=== PATIENT | male | born 1960 | race Caucasian/White ===

== ENCOUNTER 2020-08-03 10:50 | Emergency (ER) | payer OTHER, SELFPAY ==
[2020-08-03 10:59] VITALS: BP 153/112; PULSE 71; RESP 16; TEMP 36.3; O2SAT 99
--- NOTE | 2020-08-03 11:08 | ED.SKABFB ---
HPI - Skin/Abscess/Foreign Bdy General Chief complaint: Skin/Abscess/Foreign Body Stated complaint: rt foot pain Source: patient and old records reviewed Limitations: no limitations History of Present Illness HPI narrative: The patient, who has a prior history of gout current non-smoker/nondrinker, presents with toe pain. Patient states this iday weekend after eating and drinking more, the 2-3d onset of right great toe pain that is mild, worse with palpation, better at rest. No trauma, deformity, this is similar to prior episode of gout which occurred also in his ankle Related Data Allergies Allergy/AdvReac Type Severity Reaction Status Date / Time No Known Allergies Allergy Unverified 08/03/20 11:05 Review of Systems Review of Systems: Narrative: The patient has been informed that they may have pre-hypertension or Hypertension based on a BP reading in the department. I recommend that the patient call the primary care provider listed on their discharge instructions or a physician of their choice this week to arrange follow up for further evaluation of possible pre-hypertension or Hypertension General/Constitutional: No weight loss,fever Eyes: N0: Redness,discharge Ears/Nose/Throat: No: Epistaxis,ear discharge Respiratory: Denies: Hemoptysis Gastrointestinal: No Vomiting, Bleeding-rectal Skin: No Lumps, eruption Neurologic: No Focal Weakness,Sz Hematologic: Denies: Petechiae/Purpura Psychiatric: No: Suicida ideationl All Other Systems: Reviewed and Negative [facility] Family History Family History (Updated 07/24/14 @ 07:13 by DOCTOR UNKNOWN) Father Malignant neoplasm of prostate Social History Social History Smoking end date: 11/27/12 Alcohol intake: current Comments At time of signature, agree with nursing past medical, surgical, social and family history. There is no relevant family history pertinent to the presenting complaint Exam Narrative: Exam Narrative: General Appearance: Well appearing, Conjunctiva clear Mouth/Throat: Normal appearing, Normal lips Neck: Supple Respiratory: Airway patent, No respiratory distress MS-foot: Normal strength (mostly intact, limited flexion/extension by pain), Tenderness ( toe, with mild decreased ROM), Swelling MTP, Other- no collateral laxity, Skin: Warm, Dry, point tender and pink/inflamed MTPJ Neurological: A&O x3, Normal affect Course Vital Signs Vital signs: Vital Signs Temperature 97.4 F L 08/03/20 10:59 Pulse Rate 71 08/03/20 10:59 Respiratory Rate 16 08/03/20 10:59 Blood Pressure 153/112 H 08/03/20 10:59 Pulse Oximetry 99 08/03/20 10:59 Temperature 97.4 F L 08/03/20 10:59 Pulse Rate 71 08/03/20 10:59 Respiratory Rate 16 08/03/20 10:59 Blood Pressure 153/112 H 08/03/20 10:59 Pulse Oximetry 99 08/03/20 10:59 Discharge Plan Discharge Clinical Impression: Acute gout involving toe of right foot Qualifiers: Gout etiology: unspecified cause Qualified Code(s): M10.9 - Gout, unspecified Patient Disposition: Home, Self-Care Condition: Stable Instructions: Gout (ED) Additional Instructions: Try diet modifications [provided] Prescriptions: New indomethacin 50 mg capsule 50 mg PO TID Qty: 20 RF: 3 prednisone 20 mg tablet 60 mg PO DAILY Qty: 9 RF: 0 tramadol 50 mg tablet 50 mg PO TID PRN (Reason: pain) Qty: 10 RF: 0 Interventions: Discharge Disposition Last Done: 08/03/20 11:15 Follow-up/Referrals: Sima,Re Perla MD [Primary Care Provider] - Discharge Date/Time: 08/03/20 11:16
== END 2020-08-03 11:16 | disposition home or self-care (01) ==
PROVIDERS: Emergency Provider Emergency Medicine; PCP Family Medicine
DX: M10.9 Gout, unspecified (principal); Z85.46 Personal history of malignant neoplasm of prostate
CPT/HCPCS: 99213; G0463

== ENCOUNTER 2021-05-03 08:58 | Emergency (ER) | payer OTHER, SELFPAY ==
[2021-05-03 09:12] VITALS: BP 155/79; PULSE 80; RESP 16; TEMP 36.4; O2SAT 99
--- NOTE | 2021-05-03 09:20 | ED.EXTPRO ---
HPI - Extremity Problem General Chief complaint: Extremity Problem,Nontraumatic Stated complaint: Ankle Pain Source: patient and RN notes reviewed Limitations: no limitations History of Present Illness HPI Narrative: The patient, previously mostly healthy and active concrete spreader, presents with left ankle pain. Patient states he has a prior history of gout, and biked yesterday for about 20 miles and now has a 1 day history of atraumatic, left ankle pain. Symptoms are mild, worse with activity, somewhat located posteriorly along the peroneal tendon. No bleeding, deformity, prior/other injury, effusion/swelling. Discussed plan to provide Indocin for mild pain, prednisone, and Tylenol 3 at bedtime for severe pain Related Data Home Medications Medication Instructions Recorded Confirmed omeprazole 20 mg capsule,delayed 20 mg PO DAILY 08/19/20 01/04/21 release sildenafil (pulm.hypertension) 20 20 mg PO DAILY tablet 08/19/20 01/04/21 mg tablet Allergies Allergy/AdvReac Type Severity Reaction Status Date / Time No Known Allergies Allergy Unverified 12/02/20 15:40 Review of Systems Review of Systems: Narrative: General/Constitutional: No weight loss,fever Eyes: N0: Redness,discharge Ears/Nose/Throat: No: Epistaxis,ear discharge Respiratory: Denies: Hemoptysis Gastrointestinal: No Vomiting, Bleeding-rectal Skin: No Lumps, eruption Neurologic: No Focal Weakness,Sz Hematologic: Denies: Petechiae/Purpura Psychiatric: No: Suicida ideationl All Other Systems: Reviewed and Negative PMFSH Past Medical History Medical History (Updated 05/03/21 @ 09:24 by Juarez Alcantar MD) GERD (gastroesophageal reflux disease) Hypertension Prostate cancer Surgical History Surgical History (Updated 10/08/20 @ 10:06 by Bernard Wong MD) History of radical prostatectomy Family History Family History Father Malignant neoplasm of prostate Social History Social History (Updated 01/04/21 @ 16:59 by Ivet Blake MA) Smoking packs per day: 0.75 Smoking cigarettes per day: 15.0 Years smoked: 20 Smoking pack-years: 15.00 Smoking status: Former smoker Tobacco type: cigarettes Second hand tobacco smoke exposure: No Smoking end date: 11/27/12 Alcohol intake: current Substance use: never Substance use type: does not use Gender identity (if verbalized by the patient): Male Spiritual care concerns: No Comments At time of signature, agree with nursing past medical, surgical, social and family history. There is no relevant family history pertinent to the presenting complaint Exam Narrative: Exam Narrative: General Appearance: Well appearing, , Conjunctiva clear Ears: External ear normal, Auditory canal normal Nose: Normal nose, Nares clear Mouth/Throat: Normal appearing, Normal lips Neck: Supple Respiratory: Airway patent, No respiratory distress MS-ankle: Normal strength (mostly intact, almost unlimited flexion/extension by pain), Tenderness (posterior laterally, with mild decreased ROM), No swelling, Other (no anterior drawer, no collateral laxity, no Achilles tenderness, no fifth MT tenderness) Skin: Warm, Dry, Normal color Neurological: A&O x3, , Normal affect Course Vital Signs Vital signs: Vital Signs Temperature 97.6 F 05/03/21 09:12 Pulse Rate 80 05/03/21 09:12 Respiratory Rate 16 05/03/21 09:12 Blood Pressure 155/79 H 05/03/21 09:12 Pulse Oximetry 99 05/03/21 09:12 Temperature 97.6 F 05/03/21 09:12 Pulse Rate 80 05/03/21 09:12 Respiratory Rate 16 05/03/21 09:12 Blood Pressure 155/79 H 05/03/21 09:12 Pulse Oximetry 99 05/03/21 09:12 Discharge Plan Discharge Clinical Impression: Left ankle tendinitis Patient Disposition: Home, Self-Care Condition: Stable Instructions: Tendinitis (ED) Prescriptions: No Action omeprazole 20 mg capsule,delayed release(D
== END 2021-05-03 09:30 | disposition home or self-care (01) ==
PROVIDERS: Emergency Provider Emergency Medicine; PCP Family Medicine
DX: Z87.891 Personal history of nicotine dependence (principal); M77.52 Other enthesopathy of left foot and ankle; K21.9 Gastro-esophageal reflux disease without esophagitis; I10 Essential (primary) hypertension; Z85.46 Personal history of malignant neoplasm of prostate
CPT/HCPCS: 99212; G0463

== ENCOUNTER 2024-03-07 11:17 | Outpatient (CLI) | payer MEDICARE, SELFPAY ==
--- NOTE | ~2024-03-07 | CT_ITS ---
CT Scan of the Chest without Contrast: Clinical Indication: Lung cancer screening, nicotine dependence Technique: Contiguous sections were acquired throughout the chest without intravenous contrast. Dose reduction technique was used on this scan by utilizing automated exposure control and iterative recon struction technique. The dose-length product (DLP) was 140.85 mGy-cm. Findings: There is no evidence of any significant mediastinal, hilar or axillary lymphadenopathy. The mediastin al soft tissues appear normal. There is no evidence of pleural or pericardial effusion. 7 mm noncalcified left lower lobe pulmonary nodule present (axial image 65). Images through the upper abdomen reveal no abnormalities. Impression: Lung RADS 3: Probably benign. Six-month follow-up screening CT advised. Reviewed, dictated and finalized at location . Impression: Lung RADS 3: Probably benign. Six-month follow-up screening CT advised.
== END 2024-03-07 11:18 ==
LOC: GOSHIMG 11:18
PROVIDERS: PCP Family Medicine; Visit Provider Physician Assistant
DX: Z12.2 Encounter for screening for malignant neoplasm of respiratory organs (principal); Z87.891 Personal history of nicotine dependence; R91.8 Other nonspecific abnormal finding of lung field
CPT/HCPCS: 71271

== ENCOUNTER 2024-03-20 05:53 | Day surgery (SDC) | payer MEDICARE, SELFPAY ==
[2024-02-23 12:44] VITALS: BMI 31.6
--- NOTE | 2024-03-19 09:29 | WPDANESEPPF ---
Anes - Initial Pre Proc Eval Procedure: Operation Date: 03/20/24 07:30 Proposed Procedures p Screening Colonoscopy - Cassius Ramírez MD Date/Time: 03/19/24 09:29 Surgeon: Cassius Ramírez MD Pre Op Diagnosis: Screening for neoplasm of colon and rectum Patient Data Age: 63 Gender: M Height: 1.7 m Weight: 86.2 kg Allergies Allergy/AdvReac Type Severity Reaction Status Date / Time No Known Allergies Allergy Verified 03/20/24 06:04 Home Medications Medication Instructions Recorded Confirmed Type omeprazole 20 mg capsule,delayed 20 mg PO DAILY 08/19/20 03/20/24 History release lisinopril 20 mg tablet See Rx Instructions .Route 02/06/24 03/20/24 Rx .COMPLEX #90 tabs Vitamin C 1 tab-cap PO DIRECTED 03/06/24 03/20/24 History cyanocobalamin (vitamin B-12) 1 tablet PO DIRECTED 03/06/24 03/20/24 History Patient hx anesthesia problems: none Family hx anesthesia problems: none Results Review: All pre-operative results and documents have been reviewed as part of the pre-operative evaluation. [facility] Past Medical History Medical History GERD (gastroesophageal reflux disease) History of prostate cancer Hypertension Prostate cancer Surgical History Surgical History History of radical prostatectomy Family History Family History Father Malignant neoplasm of prostate Social History Social History Social History: Smoking packs per day: 0.75 Smoking cigarettes per day: 15.0 Years smoked: 20 Smoking pack-years: 15.00 Smoking status: Former smoker Tobacco type: cigarettes Second hand tobacco smoke exposure: No Smoking end date: 11/27/12 Alcohol intake: former Substance use: never Substance use type: does not use Living arrangements: with family Occupation/Education: occupation Gender identity (if verbalized by the patient): Male Sexual Orientation (if Verbalized by the Patient): Straight or Heterosexual Spiritual care concerns: No Anes - Eval Final PreProcedure Day of Procedure 03/19/24 09:29 Patient weight: overweight Heart: regular rate and rhythm Lungs: clear to auscultation Airway: Mallampati scale class II Neurological: alert and oriented Last oral intake: >/= 8 hours ASA classification: III Emergent: no Anesthetic plan: proceed Anesthesia type and monitoring: general GIVS and standard monitoring Results Review: All pre-operative results and documents have been reviewed as part of the pre-operative evaluation. Informed Consent: The patient's anesthetic plan and its attendant risks and benefits were discussed with the patient/family/POA. Questions were solicited and answers provided to the satisfaction of the patient/family/POA.
[2024-03-20 06:35] VITALS: BP 152/108; PULSE 106; RESP 16; TEMP 36.6; O2SAT 97; BMI 30.9
[2024-03-20] MEDS: LACTATED RINGERS 1,000 ML 150 ML IV CONT (06:44)
--- NOTE | 2024-03-20 07:13 | PM.HPGS ---
History of Present Illness History of Present Illness Consent: Risks, benefits, and alternatives have been discussed and questions answered. Patient agrees to proceed with procedure. Chief complaint: Screening for neoplasm of colon and rectum Narrative: Ki Flores is a 63 year old male presents for screening colonoscopy. Patient ate appetite and bowel movements are normal. He is abdominal pain. He has had no bleeding. Family history is noncontributory. Previous colonoscopy 10 years ago was unremarkable. Review of Systems Review of Systems: All systems reviewed & are unremarkable except as noted in HPI and below PMFSH Past Medical History Medical History GERD (gastroesophageal reflux disease) History of prostate cancer Hypertension Prostate cancer Surgical History Surgical History History of radical prostatectomy Family History Family History Father Malignant neoplasm of prostate Social History Social History Social History: Smoking packs per day: 0.75 Smoking cigarettes per day: 15.0 Years smoked: 20 Smoking pack-years: 15.00 Smoking status: Former smoker Tobacco type: cigarettes Second hand tobacco smoke exposure: No Smoking end date: 11/27/12 Alcohol intake: former Substance use: never Substance use type: does not use Living arrangements: with family Occupation/Education: occupation Gender identity (if verbalized by the patient): Male Sexual Orientation (if Verbalized by the Patient): Straight or Heterosexual Spiritual care concerns: No Meds Home Medications and Allergies Home Medications Medication Instructions Recorded Confirmed Type omeprazole 20 mg capsule,delayed 20 mg PO DAILY 08/19/20 03/20/24 History release lisinopril 20 mg tablet See Rx Instructions .Route 02/06/24 03/20/24 Rx .COMPLEX #90 tabs Vitamin C 1 tab-cap PO DIRECTED 03/06/24 03/20/24 History cyanocobalamin (vitamin B-12) 1 tablet PO DIRECTED 03/06/24 03/20/24 History Allergies Allergy/AdvReac Type Severity Reaction Status Date / Time No Known Allergies Allergy Verified 03/20/24 06:04 Vital Signs Vital Signs - 24 hr 03/20/24 06:35 Temperature 98 F Pulse Rate 106 H Respiratory Rate 16 Blood Pressure 152/108 H Pulse Oximetry 97 Oxygen Delivery Room Air Exam Narrative: Physical exam reveals patient to be alert. Vital signs stable. HEENT is unremarkable. Patient is anicteric. Lungs are clear to auscultation and percussion. Heart Is without murmur or extra sounds. Abdomen bowel sounds are present soft nontender . Digital external rectal exam is normal. Assessment and Plan Assessment and plan (1) Encounter for screening colonoscopy: Code(s): Z12.11 - Encounter for screening for malignant neoplasm of colon Status: Acute Assessment and Plan: Patient presents today for screening colonoscopy.
[2024-03-20 07:49] VITALS: BP 137/99; PULSE 86; RESP 16; O2SAT 98
[2024-03-20 07:59] VITALS: BP 142/96; PULSE 74; RESP 14; O2SAT 97
[2024-03-20 08:09] VITALS: BP 145/105; PULSE 71; RESP 14; O2SAT 96
--- NOTE | 2024-03-20 13:32 | WPDANESPN ---
Anes - Prog Note Post-Op Date/Time: 03/20/24 13:32 Cardiovascular status: normal Respiratory status: normal Airway patency: baseline Mental status: baseline Post-Op hydration status: normal Vital Signs: Last Vital Signs Temp 36.6 C 03/20/24 06:35 Pulse 71 03/20/24 08:09 Resp 14 03/20/24 08:09 BP 145/105 H 03/20/24 08:09 Pulse Ox 96 03/20/24 08:09 O2 Del Method Room Air 03/20/24 08:09 Pain Score (VAS): 0 I/O: Intake & Output 03/19/24 03/20/24 03/20/24 23:59 07:59 15:59 Intake Total 400 300 Balance 400 300 Post-procedural complaints: none Patient Feedback: Patient satisfied with anesthetic care. Other Findings: Patient vital signs back to baseline. Patient denies nausea and vomiting. Patient's pain under control. Patient OK for discharge.
== END 2024-03-20 08:28 | disposition home or self-care (01) ==
PROVIDERS: PCP Family Medicine; Visit Provider Internal Medicine Gastroenterology
PROC: 0DJD8ZZ Inspection of Lower Intestinal Tract, Via Natural or Artificial Opening Endoscopic (ICD-10-PCS; CPT 45378; principal; 2024-03-20 07:30)
DX: Z12.11 Encounter for screening for malignant neoplasm of colon (principal); K57.30 Diverticulosis of large intestine without perforation or abscess without bleeding; K64.8 Other hemorrhoids
CPT/HCPCS: 45378

== ENCOUNTER 2024-05-16 12:13 | Outpatient (CLI) | payer MEDICARE, SELFPAY ==
--- NOTE | ~2024-05-16 | XR_ITS ---
XR shoulder LT min 2V Ordering provider: Bernard Wong MD History: . bilat shoulder pain . Comparison: None. FINDINGS: BONES: No acute fracture or dislocation. JOINT SPACES: The acromioclavicular joint is normal. The glenohumeral joint is normal. SOFT TISSUES: Normal. IMPRESSION: No acute osseous abnormality left shoulder. Reviewed, dictated and finalized at location A.
--- NOTE | ~2024-05-16 | XR_ITS ---
XR shoulder RT min 2V Ordering provider: Bernard Wong MD History: . M25.511 - Pain in right shoulder . Comparison: None. FINDINGS: BONES: No acute fracture or dislocation. JOINT SPACES: The acromioclavicular joint is normal. The glenohumeral joint is normal. SOFT TISSUES: Normal. IMPRESSION: No acute osseous abnormality right shoulder. Reviewed, dictated and finalized at location A.
== END 2024-05-16 12:14 ==
LOC: MICIMG 12:14
PROVIDERS: PCP Family Medicine; Visit Provider Family Medicine
DX: M25.511 Pain in right shoulder (principal); M25.512 Pain in left shoulder
CPT/HCPCS: 73030

== ENCOUNTER 2024-09-09 08:21 | Outpatient (CLI) | payer MEDICARE, SELFPAY ==
--- NOTE | ~2024-09-09 | CT_ITS ---
CT Scan of the Chest without Contrast: Clinical Indication: Pulmonary nodule Technique: Contiguous sections were acquired throughout the chest without intravenous contrast. Dose reduction technique was used on this scan by utilizing automated exposure control and iterative recon struction technique. The dose-length product (DLP) was 170.02 mGy-cm. COMPARISON: 03/07/2024 Findings: There is no evidence of any significant mediastinal, hilar or axillary lymphadenopathy. The mediastin al soft tissues appear normal. There is no evidence of pleural or pericardial effusion. Stable 8 mm left lower lobe pulmonary nodule (axial image 74). Images through the upper abdomen reveal diffuse hepatic steatosis. Impression: Stable 8 mm left lower lobe pulmonary nodule. Reviewed, dictated and finalized at location . Impression: Stable 8 mm left lower lobe pulmonary nodule.
== END 2024-09-09 08:22 | disposition home or self-care (01) ==
PROVIDERS: PCP Family Medicine; Visit Provider Physician Assistant Medical
DX: R91.1 Solitary pulmonary nodule (principal)
CPT/HCPCS: 71250

== ENCOUNTER 2024-09-17 08:30 | Outpatient (CLI) | payer MEDICARE, SELFPAY ==
--- NOTE | ~2024-09-17 | MR_ITS ---
EXAMINATION: MR shoulder RT wo con DATE: 09/17/2024 09:12 INDICATION: Pain in right shoulder. TECHNIQUE: Magnetic resonance imaging (MRI) of the right shoulder was performed without intravenous c ontrast. Sequences included axial PD-weighted FS FSE, coronal oblique PD-weighted FS FSE and T2-weigh jonathan FS FSE, and sagittal oblique T2-weighted FS FSE and T1-weighted FSE. COMPARISON: Right shoulder radiograph 05/16/2024 FINDINGS: Coracoacromial arch: The acromion undersurface is curved in morphology (type II). Subacromial spurring is noted. There is severe acromioclavicular joint osteoarthritis including inferiorly directed osteophytes. There is mil d subacromial/subdeltoid bursitis. Rotator cuff: There is a full-thickness tear of anterior supraspinatus tendon measuring 1.5 cm anterior to posterio r by 3.0 cm proximal to distal. There is a small interstitial tear of the infraspinatus myotendinous junction. Teres minor tendon is normal. There is an articular-sided partial thickness tear of distal subscapularis tendon. There is no asymmetric fatty atrophy of the rotator cuff muscle bellies. Biceps tendon and glenoid labrum: There is a complete tear of proximal biceps tendon. A portion of the biceps tendon is medially displa julio into the subscapularis tendon tear. There is a degenerative tear of the superior glenoid labrum. Fluid: There is a small glenohumeral joint effusion. Bones/cartilage: There is shallow partial-thickness cartilage loss of humeral head and glenoid. Osteophytes are noted. IMPRESSION: 1. Full-thickness rotator cuff tear. 2. Mild glenohumeral joint chondrosis. 3. Severe acromioclavicular joint osteoarthritis. 4. Small glenohumeral joint effusion and mild subacromial/subdeltoid bursitis. 5. Complete tear of proximal biceps tendon. Reviewed, dictated and finalized at location A.
== END 2024-09-17 08:31 | disposition home or self-care (01) ==
LOC: ANHIMG 08:34
PROVIDERS: PCP Family Medicine; Visit Provider Family Medicine
DX: M75.101 Unspecified rotator cuff tear or rupture of right shoulder, not specified as traumatic (principal); M19.011 Primary osteoarthritis, right shoulder; S46.211D Strain of muscle, fascia and tendon of other parts of biceps, right arm, subsequent encounter; X58.XXXD Exposure to other specified factors, subsequent encounter
CPT/HCPCS: 73221

== ENCOUNTER 2025-02-17 16:40 | Outpatient (CLI) | payer MEDICARE, SELFPAY ==
--- OUTSIDE RECORDS SUMMARY | 2025-02-17 18:40 | XMS_ITS | Clinical Summary ---
Author Organization [facility] Address [address] [place] [place] [address] Phone Care Team Providers Care Planning Feeder Name Role Phone Bernard Wong MD Primary Care Provider [phone] Allergies No known active allergies Medications HYDROcodone-elicia taminophen (NORCO) 5-325 mg tabletIndicatio ns:Elevated PSA Take 1 Tablet by mouth every 4 hours as needed for Pain. Max Daily Amount: 6 Tablets 30 Tablet 0 Active sildenafiL, pulm.hypertensi on, (REVATIO) 20 mg Tablet Take 1 Tablet (20 mg) by mouth 1 time daily as needed for Other (See Comment) (ED). Take 2-5 tablets daily when necessary for ED. 50 Tablet 0 Active Active Problems Problem Noted Date Diagnosed Date History of prostate cancer 06/19/2023 Erectile dysfunction 07/13/2020 TIARA (stress urinary incontinence), male 07/13/20 20 Prostate cancer 01/28/2020 Elevated PSA 12/10/2019 Encounters Date Type Department Care Team Description 02/12/2025 External Device Data STL ABSTRACTION Provider, Abstract 02/01/2025 External Device Data STL ABSTRACTION Provider, Abstract 01/31/2025 External Device Data STL ABSTRACTION Provider, Abstract 01/28/2025 External Device Data STL ABSTRACTION Provider, Abstract 01/15/2025 External Device Data STL ABSTRACTION Provider, Abstract 01/15/2025 External Device Data STL ABSTRACTION Provider, Abstract 12/24/2024 External Device Data STL ABSTRACTION Provider, Abstract 12/18/2024 External Device Data STL ABSTRACTION Provider, Abstract 12/18/2024 External Device Data STL ABSTRACTION Provider, Abstract 12/10/2024 External Device Data STL ABSTRACTION Provider, Abstract from Last 3 Months Social History Tobacco Use Types Packs/Day Years Used Date Smoking Tobacco: Former Cigarettes Q uit: 2012 Smokeless Tobacco: Never Tobacco Cessation:Counseling Given: Not Answered Alcohol Use Standard Drinks/Week Comments Yes 1 (1 standard drink = 0.6 oz pur e alcohol) soc Sex and Gender Information Value Date Recorded Sex Assigned at Not on file 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 Gender Identity Not on file Sexual Orientation Not on file Last Filed Vital Signs Vital Sign Reading Time Taken Comments Blood Pressure 130/74 06/19/2023 2:54 PM CDT Pulse 87 04/16/2020 5:17 AM CDT Temperature 36.7 C (98 F) 04/21/2020 2:16 PM CDT Respiratory Rate 18 06/13/2022 2:07 PM CDT Oxygen Saturation 97% 04/16/2020 5:43 AM CDT Inhaled Oxygen Concentration - - Weight 83.9 kg (185 lb) 06/24/2024 2:50 PM CDT Height 170.2 cm (5' 7 ) 06/24/2024 2:50 PM CDT Body Mass Index 28.98 06/24/2024 2:50 PM CDT Plan of Treatment Upcoming Encounters Date Type Department Care Team (Late st Contact Info) Description 06/24/2025 10:00 AM CDT Office Visit [facility] Urology at the [facility] Medicine [address] [place] [address] Alex Muller MD [address] [facility] [address] [place] [address] Health Maintenance Due Date Last Done Comments Pre-Diabetes and Diabetes Screening 1958 DTAP/TDAP/TD VACCINES (1 - Tdap) 1977 COLORECTAL SCREENING 2003 Colorectal Cancer Screening 2003 FIT-DNA Q 3 years 2003 FIT/FOBT Q 1 year 2003 Flex Sig/CT Colonography Q 5 years 2003 PNEUMOCOCCAL VACCINE 50+ YEARS (1 of 1 - PCV) 10/04/20 08 ZOSTER VACCINE (1 of 2) 2008 Abdominal Aortic Aneurysm (AAA) Screening 2023 INFLUENZA VACCINE (#1) 2024 RSV VACCINE (60+ or ) (1 - 1-dose 75+ series) 2033 Medical Devices Implanted Type Area Chief Compliance Officer Device Identifier Shelf Expiration Date Model / Serial / Lot Polyner Ligation Clips Implanted:Qty : 1 on 04/14/2020 by Alex Muller MD at [facility] Clip N/A: Pelvis 04/27/2022 [id number] / / [id number] Description:REF: [id number] Clip Hemolok Lrg [id number] - Csc - [id number] Implanted:Qty : 5 on 04/14/2020 by Alex Muller MD at [facility] Clip N/A: Pelvis TELEFLEX- WECK CLOSURE SYS 07/08/2024 [id number] / / [id number] Hemostatic Surgicel 4x8in 1953 - [id number] Implanted:Qty : 1 on 04/14/2020 by Alex Muller MD at [facility] Hemostatic Pelvis [employer] [id number] 06/26/2024 1952 / / [id number] Hemostatic Surgicel 4x8in 1953 - [id number] Implanted:Qty : 1 on 04/14/2020 by Alex Muller MD at [facility] Hemostatic N/A: Pelvis [employer] [id number] 07/27/20242 / / [id number] Hemostatic Surgiflo 8ml W/Thrombin 2994 - [id number] Implanted:Qty : 1 on 04/14/2020 by Alex Muller MD at [facility] Hemostatic N/A: Pelvis [employer] [id number] 01/24/2021 2994 / / [id number] Hemostatic Surgiflo 8ml W/Thrombin 2994 - [id number] Implanted:Qty : 1 on 04/14/2020 by Alex Muller MD at [facility] Hemostatic N/A: Pelvis [employer] [id number] 11/26/2020 2994 / / [id number] Hemostatic Surgicel 4x8in 1953 - [id number] Implanted:Qty : 1 on 04/14/2020 by Alex Muller MD at [facility] Hemostatic Pelvis [employer] [id number] 06/26/20242 / / [id number] Hemostatic Surgiflo 8ml W/Thrombin 2993 - [id number] Implanted:Qty : 1 on 04/14/2020 by Alex Muller MD at [facility] Hemostatic Pelvis [employer] [id number] 01/24/2021 2994 / / [id number] Insurance [facility] [id number] [facility] Host [employer] [facility] MCR Advance Directives For more information, please contact: [phone] * Full Code (Latest Code Status on File) Date Activated Date Inactivated Comments 04/14/2020 7:26 PM 04/16/2020 1:16 PM * Full Code Date Activated Date Inactivated Comments 04/14/2020 10:56 AM 04/14/2020 7:26 PM * Full Code Date Activated Date Inactivated Comments 01/06/2020 11:22 AM 01/06/2020 2:32 PM * Full Code Date Activated Date Inactivated Comments 01/06/2020 9:41 AM 01/06/2020 11:21 AM Care Teams Planning Feeder Relationship Specialty Start Date End Date Bernard Wong MD [address] [facility] [address] [place] [address] PCP - General Family Practice 10/15/20
== END 2025-02-17 16:41 | disposition home or self-care (01) ==
LOC: ANHLAB 16:43
PROVIDERS: PCP Family Medicine; Visit Provider Orthopaedic Surgery
DX: Z01.818 Encounter for other preprocedural examination (principal); M75.101 Unspecified rotator cuff tear or rupture of right shoulder, not specified as traumatic
CPT/HCPCS: 87081

== ENCOUNTER 2025-02-18 13:24 | Outpatient (CLI) | payer MEDICARE, SELFPAY ==
--- NOTE | 2025-02-18 13:42 | ECG_ITS ---
Test Date: 2025-02-18 13:54:08 Measurements Intervals [place] Rate: 62 P: 51 [place]: 171 QRS: 48 QRSD: 92 T: 11 QT: 387 QTc: 393 Interpretive Statements SINUS RHYTHM WITH MARKED SINUS ARRHYTHMIA No previous ECG available for comparison Electronically Signed On 02-18-2025 16:46:53 CDT by Sammie Deng M.D.
--- OUTSIDE RECORDS SUMMARY | 2025-02-18 15:36 | XMS_ITS | Clinical Summary ---
Author Organization [facility] Address [address] 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 Gender Identity Not on file Sexual Orientation [...] Description 06/24/2025 10:00 AM CDT Office Visit [facility] Urology at the [facility] Medicine [address] [place] [address] Alex Muller MD [address] [facility] [address] [place] [address] Health Maintenance Due Date Last Done Comments [...] series) 2033 Medical Devices Implanted Type Area Adventure Therapist Device Identifier Shelf Expiration Date Model / Serial / Lot Polyner Ligation Clips Implanted:Qty : 1 on 04/14/2020 by Alex Muller MD at [facility] Clip N/A: Pelvis 04/27/2022 [id number] / / [id number] Description:REF: [id number] Clip Hemolok Lrg 298459 - Csc - [id number] Implanted:Qty : 5 on 04/14/2020 by Alex Muller MD at [facility] Clip N/A: Pelvis TELEFLEX- WECK CLOSURE SYS 07/08/2024 [id number] / / [id number] Hemostatic Surgicel 4x8in 1953 - [id number] Implanted:Qty : 1 on 04/14/2020 by Alex Muller MD at [facility] Hemostatic Pelvis [employer] [id number] 06/26/2024 1952 / / [id number] Hemostatic Surgicel 4x8in 1953 - [id number] Implanted:Qty : 1 on 04/14/2020 by Alex Muller MD at [facility] Hemostatic N/A: Pelvis [employer] [id number] 07/27/20242 / / [id number] Hemostatic Surgiflo 8ml W/Thrombin 2994 - [id number] Implanted:Qty : 1 on 04/14/2020 by Alex Muller MD at [facility] Hemostatic N/A: Pelvis [employer] [id number] 01/24/2021 2994 / / [id number] Hemostatic Surgiflo 8ml W/Thrombin 2994 - [id number] Implanted:Qty : 1 on 04/14/2020 by Alex Muller MD at [facility] Hemostatic N/A: Pelvis [employer] [id number] 11/26/2020 2994 / / [id number] Hemostatic Surgicel 4x8in 1953 - [id number] Implanted:Qty : 1 on 04/14/2020 by Alex Muller MD at [facility] Hemostatic Pelvis J[employer] [id number] 06/26/20242 / / [id number] Hemostatic Surgiflo 8ml W/Thrombin 2993 - [id number] Implanted:Qty : 1 on 04/14/2020 by Alex Muller MD at [facility] Hemostatic Pelvis [employer] [id number] 01/24/2021 2994 / / [id number] Insurance [facility] [id number] [facility] [employer] [facility] MCR Advance Directives For more information, please contact: [phone] * Full Code (Latest Code Status on File) Date Activated Date Inactivated Comments 04/14/2020 7:26 PM 04/16/2020 1:16 PM * Full Code Date Activated Date Inactivated Comments 04/14/2020 10:56 AM 04/14/2020 7:26 PM * Full Code Date Activated Date Inactivated Comments 01/06/2020 11:22 AM 01/06/2020 2:32 PM * Full Code Date Activated Date Inactivated Comments 01/06/2020 9:41 AM 01/06/2020 11:21 AM Care Teams Vtc Technician Relationship Specialty Start Date End Date Bernard Wong MD [address] [facility] [address] [place] [address] PCP - General Family Practice 10/15/20
== END 2025-02-18 13:25 | disposition home or self-care (01) ==
PROVIDERS: PCP Family Medicine; Visit Provider Anesthesiology
DX: E78.5 Hyperlipidemia, unspecified (principal); I10 Essential (primary) hypertension
CPT/HCPCS: 93005

== ENCOUNTER 2025-02-27 00:40 | Day surgery (SDC) | payer MEDICARE, SELFPAY ==
[2025-02-13 14:18] VITALS: BMI 29.7
--- NOTE | 2025-02-13 14:40 | PC.NURSE ---
Report to the Outpatient Waiting Room, entrance under the green pavilion located off [facility], at time ___9:30AM____ on date ___02/27/25____. Planned Procedure Time: ___11:30AM .? Time changes happen often and if your time is changed the preop area will call you the afternoon before. - You and your visitor will be asked to self-screen and do not enter if you have any COVID symptoms. Please call surgeon if you need to reschedule. - A mask is optional within the hospital at this time. Patients may have clear liquids (water, carbonated beverages, clear teas, apple juice) until 3 hours prior to surgery (8:30AM) with a maximum of 20 ounces. - No food from midnight until time of surgery and no smoking, or chewing tobacco (or any form of nicotine). No chewing gum, candy or mints. Take only the following medications with a SIP of water on the morning of surgery: ___TRAMADOL NEEDED FOR PAIN DO NOT STOP ANY OF YOUR OTHER PRESCRIPTION MEDICATIONS PRIOR TO SURGERY EXCEPT THE FOLLOWING Hold all vitamins and supplements for 3 days per anesthesiologist. Medications to discontinue per physician ___HOLD NSAIDS(IBUPROFEN) AND VITAMINS/SUPPLEMENTS 7 DAYS PRE-OP PER DR CORDOBA. Date to take last dose 02/19/25 Please no make-up, nail urdu, hairspray, perfume, deodorant, or body powder the day of surgery.? No jewelry (including any body piercings) or valuables the day of surgery, leave them at home.? Please take a shower or bath the night before, or the morning of, surgery with an antibacterial soap.? Wear comfortable, loose fitting clothing.? - Jewelry must be removed prior to entering the operating room.? Rings and piercings that are not removed may be cut off. - The hospital will not accept responsibility for valuables.? - Please leave all valuables, including medications, at home the day of surgery. If you are going home after surgery, a licensed pile driver operator must drive you home.? - NO public transportation without another adult if you receive anesthesia. - We recommend that an adult stay with you for 24 hours following discharge. - We also recommend that you do not drive, make important decision, drink alcoholic beverages, or take any drugs that were not prescribed by your health care provider for at least 24 hours after your discharge time. Follow any additional instructions given to you from your surgeon. Telephone instructions given to ____PATIENT and asked if any additional questions and then verbalized understanding. Patient advised to call surgeon office or pre surgery nurse liaison [phone] if any additional questions.
--- NOTE | 2025-02-26 12:26 | PM.IMHP ---
H&P: HPI History of Present Illness Date/Time: 02/26/25 12:26 Chief Complaint: Rotator cuff tear right shoulder Narrative: 64-year-old male who presents today arthroscopy of his right shoulder mini open rotator cuff repair. Patient has been having pain in symptoms in his right shoulder for several years. Last year it has gotten worse. He does not recall any injury or accident that caused the onset of his symptoms. They have been slowly progressively worsening over the course of last year. This point he is having symptoms of pain and weakness sensation on a daily basis. He had an MRI scan done in August of 2024 which showed a full-thickness tear of the supraspinatus tendon with medial retraction and partial thickness tearing of the upper border of the infraspinatus tendon. 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 Patient is very active 64-year-old and the pain he is having in the shoulders is limiting his activities. Patient would like to proceed with surgery at this point rather than continue non operative treatments. Review of Systems Review of Systems: All systems reviewed & are unremarkable except as noted in HPI and below PMFSH Past Medical History Medical History History of prostate cancer Hypertension GERD (gastroesophageal reflux disease) Prostate cancer Surgical History Surgical History History of radical prostatectomy Family History Family History Father Malignant neoplasm of prostate Social History Social History (Updated 02/18/25 @ 15:28 by Jihan Mccann MA) Social History: Smoking packs per day: 0 Smoking cigarettes per day: 0.0 Years smoked: 25 Smoking pack-years: 0.00 Smoking status: Former smoker Tobacco type: cigarettes Second hand tobacco smoke exposure: No Smoking end date: 05/27/10 Alcohol intake: former Substance use: never Substance use type: does not use Do You Feel Safe in your Home?: Yes Lack of Transportation: No Lack of Food: Never True Current Housing: I Have Housing Concerned About Future Housing: No Difficulty Paying Gas/Electric Bills: No Difficulty Paying for Meds: No Currently Unemployed: No Education: Bachelor's Degree Difficulty w/ Childcare or Family Care: No Living arrangements: with family Additional living arrangements comments: Occupation/Education: occupation Gender identity (if verbalized by the patient): Male Sexual Orientation (if Verbalized by the Patient): Straight or Heterosexual Spiritual care concerns: No Meds Home Medications and Allergies Home Medications ?Medication ?Instructions ?Recorded ?Confirmed ?Type omeprazole 20 mg capsule,delayed 20 mg PO DAILY PRN GERD 08/19/20 02/18/25 History release cyanocobalamin (vitamin B-12) 1 tablet PO DAILY 03/06/24 02/18/25 History lisinopril 20 mg tablet See Rx Instructions .Route 11/01/24 02/18/25 Rx .COMPLEX #90 tabs tramadol 50 mg tablet 50 mg PO Q6H PRN pain #30 tabs 11/28/24 02/18/25 Rx ascorbic acid (vitamin C) 1,000 mg 1 g PO DAILY 02/13/25 02/18/25 History capsule ibuprofen 200 mg capsule 600 mg PO Q6H PRN pain 02/13/25 02/18/25 History omega 4-vad-ydk-fish oil 1,000 mg 1 cap PO DAILY 02/13/25 02/18/25 History (120 mg-180 mg) capsule (Fish Oil) Allergies Allergy/AdvReac Type Severity Reaction Status Date / Time No Known Allergies Allergy Verified 02/18/25 15:14 Exam Narrative: 64-year-old male alert pleasant. He has an obvious Moi sign to the right biceps muscle belly. Elbow has full range of motion without discomfort. He is 5 ft 7 and 201 lb BMI is 31.4. Right shoulder elevation 160, external rotation is 70 internal rotation L1. AC joint is nontender. Moderate tenderness over the bicipital groove and the anterior supraspinatus tendon insertion. He has slight decrease in strength in external rotation as well as abduction in the right shoulder. He is unable to do a subscap lift-off and has slight decrease in strength with belly press maneuver. Normal sensation right upper extremity. Neck range of motion is full without discomfort. Negative Spurling's maneuver. 2+ radial pulse. Resp: Auscultation: clear to auscultation bilaterally Cardio: Rate: regular rate Rhythm: regular rhythm Assessment and Plan Assessment and plan (1) Rotator cuff tear, right: Qualifiers: Rotator cuff tear extent: complete Rotator cuff tear trauma status: nontraumatic Qualified Code(s): M75.121 - Complete rotator cuff tear or rupture of right shoulder, not specified as traumatic Code(s): M75.101 - Unspecified rotator cuff tear or rupture of right shoulder, not specified as traumatic Status: Acute Assessment and Plan: 64-year-old male who has a full-thickness rotator cuff tear right shoulder. He also has a chronic tear of the long head of the biceps tendon. This happened approximately 6 months ago. He is having continued symptoms on a regular basis and feels he would rather proceed with surgical repair the tendon rather than continuing to live with that. Surgical procedures well as the risks and complications were discussed in detail all questions were answered we will proceed. Patient will see his primary care doctor for pre-surgical clearance. He will avoid any aspirin ibuprofen products 1 week prior to surgery. Nasal swab was negative.
[2025-02-27] VITALS (8 sets, daily range): BP systolic 108–155; BP diastolic 71–92; PULSE 65–96; RESP 12–20; TEMP 36.1–36.6; O2SAT 94–98
--- OUTSIDE RECORDS SUMMARY | 2025-02-27 00:45 | XMS_ITS | Clinical Summary ---
Author Organization [facility] Address [address] [place] 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 Gender Identity Not on file Sexual Orientation [...] Description 06/24/2025 10:00 AM CDT Office Visit [facility] Urology at the [facility] Medicine [address] [place] [address] Alex Muller MD [address] [facility] [address] [place] [address] Health Maintenance Due Date Last Done Comments [...] series) 2033 Medical Devices Implanted Type Area Industrial Safety And Health Specialist Device Identifier Shelf Expiration Date Model / Serial / Lot Polyner Ligation Clips Implanted:Qty : 1 on 04/14/2020 by Alex Muller MD at [facility] Clip N/A: Pelvis 04/27/2022 [id number] / / [id number] Description:REF: [id number] Clip Hemolok Lrg 206981 - Csc - [id number] Implanted:Qty : 5 on 04/14/2020 by Alex Muller MD at [facility] Clip N/A: Pelvis TELEFLEX- WECK CLOSURE SYS 07/08/2024 [id number] / / [id number] Hemostatic Surgicel 4x8in 1953 - [id number] Implanted:Qty : 1 on 04/14/2020 by Alex Muller MD at [facility] Hemostatic Pelvis J[employer] [id number] 06/26/20241951 / / [id number] Hemostatic Surgicel 4x8in 1953 - [id number] Implanted:Qty : 1 on 04/14/2020 by Alex Muller MD at [facility] Hemostatic N/A: Pelvis [employer] [id number] 07/27/20241951 / / [id number] Hemostatic Surgiflo 8ml W/Thrombin 2994 - [id number] Implanted:Qty : 1 on 04/14/2020 by Alex Muller MD at [facility] Hemostatic N/A: Pelvis J[employer] [id number] 01/24/2021 2994 / / [id number] Hemostatic Surgiflo 8ml W/Thrombin 2994 - [id number] Implanted:Qty : 1 on 04/14/2020 by Alex Muller MD at [facility] Hemostatic N/A: Pelvis [employer] [id number] 11/26/2020 2994 / / [id number] Hemostatic Surgicel 4x8in 1953 - [id number] Implanted:Qty : 1 on 04/14/2020 by Alex Muller MD at [facility] Hemostatic Pelvis J[employer] [id number] 06/26/2024 1954 / / [id number] Hemostatic Surgiflo 8ml W/Thrombin 2993 - [id number] Implanted:Qty : 1 on 04/14/2020 by Alex Muller MD at [facility] Hemostatic Pelvis [employer] [id number] 01/24/2021 2994 / / [id number] Insurance [facility] [id number] [facility] Advance Directives For more information, please contact: [phone] * Full Code (Latest Code Status on File) Date Activated Date Inactivated Comments 04/14/2020 7:26 PM 04/16/2020 1:16 PM * Full Code Date Activated Date Inactivated Comments 04/14/2020 10:56 AM 04/14/2020 7:26 PM * Full Code Date Activated Date Inactivated Comments 01/06/2020 11:22 AM 01/06/2020 2:32 PM * Full Code Date Activated Date Inactivated Comments 01/06/2020 9:41 AM 01/06/2020 11:21 AM Care Teams Second Language Tutor Relationship Specialty Start Date End Date Bernard Wong MD [address] [facility] [address] [place] [address] PCP - General Family Practice 10/15/20
--- OUTSIDE RECORDS SUMMARY | 2025-02-27 00:45 | XMS_ITS | Encounter Summary ---
Author Organization [facility] Address [address] [place] [address] Care Team Providers Care Sewing Machine Repairer Helper Name Role Phone Bernard Wong MD Primary Care Provider [phone] Encounter Details Date Type Department Care Team (Late st Contact Info) Description 02/25/2025 External Device Data ST[facility] ABSTRACTION Provider, Abstract NO ADDRESS ON FILE Social History Tobacco Use Types Packs/Day Years Used Date Smoking Tobacco: Former Cigarettes Q uit: 2012 Smokeless Tobacco: Never Alcohol Use Standard Drinks/Week Comments Yes 1 (1 standard drink = 0.6 oz pur e alcohol) soc Sex and Gender Information Value Date Recorded Sex Assigned at Not on file 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 Gender Identity Not on file Sexual Orientation Not on file documented as of this encounter Plan of Treatment Upcoming Encounters Date Type Department Care Team (Late st Contact Info) Description 06/24/2025 10:00 AM CDT Office Visit [facility] Urology at the [facility] [address] [place] [address] Alex Muller MD [address] [facility] [address] [place] [address] documented as of this encounter Visit Diagnoses Not on filedocumented in this encounter Care Teams Sewing Machine Repairer Helper Relationship Specialty Start Date End Date Bernard Wong MD [address] [place] [address] PCP - General Family Practice 10/15/20 documented as of this encounter
[2025-02-27] MEDS: LACTATED RINGERS 1,000 ML 30 ML IV CONT ×2 (10:00→15:27)
[2025-02-27] MEDS: KETOROLAC 15 MG/ML VIAL (*BKC) IV PUSH (10:51)
[2025-02-27] MEDS: ACETAMINOPHEN 500 MG TABLET 1000 MG PO (10:51)
--- NOTE | 2025-02-27 12:03 | P.PNAN_ITS ---
Anes - Initial Pre Proc Eval Procedure: Operation Date: 02/27/25 11:30 Proposed Procedures p Right Shoulder Arthroscopy, Open Rotator Cuff Repair, Possible Arthroflex Dermal Allograft, Proceed as Indicated - Rehan Blank MD Date/Time: 02/27/25 12:03 Surgeon: Rehan Blank MD Pre Op Diagnosis: rotator cuff tear right shoulder Patient Data Age: 64 Gender: M Height: 1.7 m Weight: 88.8 kg Last Vital Signs Temp 36.6 C 02/27/25 10:58 Pulse 65 02/27/25 10:58 Resp 16 02/27/25 10:58 BP 155/92 H 02/27/25 10:58 Pulse Ox 98 02/27/25 10:58 O2 Del Method Room Air 02/27/25 10:58 Allergies Allergy/AdvReac Type Severity Reaction Status Date / Time No Known Allergies Allergy Verified 02/27/25 10:53 Home Medications ?Medication ?Instructions ?Recorded ?Confirmed ?Type omeprazole 20 mg capsule,delayed 20 mg PO DAILY PRN GERD 08/19/20 02/27/25 History release cyanocobalamin (vitamin B-12) 1 tablet PO DAILY 03/06/24 02/27/25 History lisinopril 20 mg tablet See Rx Instructions .Route 11/01/24 02/27/25 Rx .COMPLEX #90 tabs tramadol 50 mg tablet 50 mg PO Q6H PRN pain #30 tabs 11/28/24 02/27/25 Rx ascorbic acid (vitamin C) 1,000 mg 1 g PO DAILY 02/13/25 02/27/25 History capsule ibuprofen 200 mg capsule 600 mg PO Q6H PRN pain 02/13/25 02/27/25 History omega 5-ypg-zdu-fish oil 1,000 mg 1 cap PO DAILY 02/13/25 02/27/25 History (120 mg-180 mg) capsule (Fish Oil) Patient hx anesthesia problems: none Family hx anesthesia problems: none Results Review: All pre-operative results and documents have been reviewed as part of the pre- operative evaluation. [facility] Past Medical History Medical History History of prostate cancer Hypertension GERD (gastroesophageal reflux disease) Prostate cancer Surgical History Surgical History History of radical prostatectomy Family History Family History Father Malignant neoplasm of prostate Social History Social History (Updated 02/18/25 @ 15:28 by Jihan Mccann MA) Social History: Smoking packs per day: 0 Smoking cigarettes per day: 0.0 Years smoked: 25 Smoking pack-years: 0.00 Smoking status: Former smoker Tobacco type: cigarettes Second hand tobacco smoke exposure: No Smoking end date: 05/27/10 Alcohol intake: former Substance use: never Substance use type: does not use Do You Feel Safe in your Home?: Yes Lack of Transportation: No Lack of Food: Never True Current Housing: I Have Housing Concerned About Future Housing: No Difficulty Paying Gas/Electric Bills: No Difficulty Paying for Meds: No Currently Unemployed: No Education: Bachelor's Degree Difficulty w/ Childcare or Family Care: No Living arrangements: with family Additional living arrangements comments: Occupation/Education: occupation Gender identity (if verbalized by the patient): Male Sexual Orientation (if Verbalized by the Patient): Straight or Heterosexual Spiritual care concerns: No Anes - Eval Final PreProcedure Day of Procedure 02/27/25 12:03 Patient weight: obese Heart: regular rate and rhythm Lungs: clear to auscultation Airway: Mallampati scale class II Neurological: alert and oriented Last oral intake: >/= 8 hours ASA classification: III Emergent: no Anesthetic plan: proceed Anesthesia type and monitoring: general ETT and standard monitoring Results Review: All pre-operative results and documents have been reviewed as part of the pre- operative evaluation. Informed Consent: The patient's anesthetic plan and its attendant risks and benefits were disc ussed with the patient/family/POA. Questions were solicited and answers provided to the satisfaction of the patient/family/POA.
--- NOTE | 2025-02-27 12:11 | WPDANESPNB ---
Anes - Peripheral Nerve Block Date/Time: 02/27/25 12:11 I have discussed with the patient/family/POA the placement of a peripheral nerve block for post-operative pain management, including associated risks, benefits, complications, and side effects. Alternative methods of post-operative analgesia were detailed. Questions were solicited and answers provided to the satisfaction of the patient/family/POA. Time-Out: A pre-procedural Time-Out was completed immediately before starting the procedure and confirmed: Patient Identification, Site, Procedure, Patient Position and the Availability of Requisite Equipment. Clinical Indications: Acute post-operative pain management requested by the operative surgeon. Nerve Block Insertion Note Anes-nerve block: interscalene right Patient position: supine Skin prep: chlorhexidine Needle: 22 gauge, stimulating, insulated echogenic needle. Needle length: 50 mm Technique: ultrasound Injectate: bupivacaine 0.5% with epi 5 mcg/ml (20cc- no epi) Observations: tolerated well Complications: none Procedure start time:: 1221 Procedure end time:: 122
--- NOTE | 2025-02-27 12:13 | WPDHPUPDATE1 ---
History and Physical Update Update Date/Time: 02/27/25 12:13 History and Physical has been reviewed, including an updated exam of the patient. There are NO changes in the patient's condition. Risks, benefits, and alternatives have been discussed and questions answered. Patient agrees to proceed with procedure.
[2025-02-27] MEDS: ceFAZolin 2 GM/D5W 50 ML 2 GM/50 ML BAG IVPB (12:33)
[2025-02-27] MEDS: ceFAZolin SODIUM 1 GM VIAL (13:16)
[2025-02-27] MEDS: VANCOMYCIN 1,250 MG/NS 250 ML 1,250 MG/250 ML BAG 166.67 MG IVPB (13:20)
--- NOTE | 2025-02-27 15:33 | PM.OP ---
Procedure Note - Brief Procedure Note - Brief Date of procedure: 02/27/25 rotator cuff tear right shoulder Procedure performed: Arthroscopy right shoulder with mini open rotator cuff repair Surgeon: CHAVA Hernandez Findings: 64-year-old male underwent arthroscopy of his right shoulder with mini open rotator cuff repair on 02/27. I was involved in the procedure including positioning the patient on the OR table in 1st assisting through the time surgery. Total time spent was 3 hours
--- NOTE | 2025-02-27 15:34 | P.OP_ITS ---
Procedure Note - Detailed Date of Procedure 02/27/25 Pre-op Diagnosis rotator cuff tear right shoulder, chronic long head of biceps rupture Post-op Diagnosis Same Procedure Performed Arthroscopic limited debridement with excision of stump of long head of biceps tendon, arthroscopic acromioplasty, mini open rotator cuff repair right shoulder Surgeon Rehan Blank MD [employer] [facility] Anesthesia General and Regional Description of Procedure Patient was brought to the operating room after he received an interscalene block in the preop holding area. He received 2 g of Ancef 1.25 g of vancomycin IV preoperatively. He was placed in the beach chair position after endotracheal anesthesia was administered. The head secured in a neutral alignment. The right shoulder was prepped draped usual fashion. All the skin was covered with I band except the top portion of the shoulder. Standard posterior portal was placed. There was chondromalacia of the superomedial aspect of the humeral head superficially. There was a sizable retracted tear of the supraspinatus and upper infraspinatus tendons. The long head of the biceps stump was approximately 2.5 cm long and rested posterior to the margin of the glenoid and with a shaver in the antral superior portal this was resected. Additional superior posterior labral trimming performed as indicated. The articular surface of the glenoid and medial humeral head looked normal. There is significant fraying of the undersurface of the supraspinatus tendon diffusely. The arthroscope was placed in the subacromial space. There is an significant fraying of the undersurface of the CA ligament. Anterior superior outflow portal was placed the mid lateral portal placed and the acromial attachment of the CA ligament was resected with the ArthroCare device and with an acromionizer bur, a conservative anterior acromioplasty was performed. The remaining skin was covered with IO band and outer gloves changed. A 3.5 cm longitudinal incision was made starting from anterolateral superior surface of the acromion extending anterolaterally. This was made over the tendinous Mookie a between the middle and anterior heads of the deltoid and this FA was identified and incised longitudinally for a split of 3.5 cm. Approximately 5 mm of deltoid origin was elevated off the anterior acromion. A for Corbell self-retaining retractor was placed. The tear was inspected. The supraspinatus was medially retracted approximately 3 cm from the lateral edge of the supraspinatus footprint. The tear involved the anterior superior most aspect of the infraspinatus and the more posterior fibers of the infraspinatus were attached by a translucent film of fibers on its bursal surface so he had high-grade articular side tearing. There was a exostosis over the anterior facet the greater tuberosity footprint which was debrided. The there is anterior osteophyte standing few mm from the articular surface at the medial aspect of the superior facet the greater tuberosity which was debrided medialized in the insertion point for the rotator cuff by about 3 mm. I inspected the subscapularis the bicipital groove. Within the bicipital groove there was some amorphous tissue that may have been residual of the ruptured long head biceps tendon. We knew from the MRI scan that there was articular sided partial tearing her are subscapularis and I evaluated this. I found the is the uppermost aspect and medial most aspect of the lesser tuberosity that was exposed. Therefore as was such a small area and very low-grade articular side interstitial healing, I liked the this long rather than place an anchor possibly tether subscapularis in some fashion. The infraspinatus supraspinatus flat could not mobilize readily. I placed 4 2. Vicryl was in the cuff tendon and using a medium elevator released superficial adhesions over the surface of the t endon and muscular tendinous junction of infraspinatus and supraspinatus. We fusions at lateral base of the coracoid. A [place] elevator was used to carefully release the adhesions between the superior posterior superior margin of the glenoid the overlying cuff tension on sutures and with this we achieved adequate mobilization. I found that the configuration of the tear was a U shaped tear. Multiple 2 mm kristopher holes were placed adjacent to articular surface for passage of sutures through the bone. I identified the anterior cable of the supraspinatus tendon. I could see this would reach anatomically to the anterior most aspect greater tuberosity superior facet with direct lateral traction and I elected to place the 1st stitch in the center of the medially retracted flap proximally at the conjoined tendon area to try to achieve an anatomic position for the rotator cuff. The 40 mm needle was not long enough and therefore we used the 5. Ethibond with the 44 mm needle taking a large bite of the tendon at this location to include the more medially retracted articular sided fibers and this suture was tied down and cut when we confirmed that we had accurate placement terms of anterior posterior position that would avoid dog ear anteriorly or posteriorly. All surgeons were placed in a simple fashion with convergence to create a spherical contour to the repair. We then repaired the anterior cable with a ConfortVisuel 1.3 mm FiberTape and we tacked down the transverse edge of rotator cuff interval capsule which gave a nice spherical contour at the anterior aspect of the repair. We proceeded to place sutures and in total we used 6 of the 1.3 mm suture tapes by Susan to the 5. Ethibonds the 2nd 1 the center of the infraspinatus tendon and 2 additional 2. At the pass at the far i nferior aspect of the infraspinatus. A solid repair was achieved in there was full range of motion of the shoulder without tension on the repair. The tendon reach to within 2 mm of the lateral margin of the greater tuberosity in all areas therefore I did not feel dermal allograft augmentation was indicated. The adequacy of the acromioplasty was confirmed with no impingement. We placed the arthroscope in the shoulder. We could see the subscapularis with normal alignment and surface contour and the supraspinatus and infraspinatus tacked down adjacent to the articular surface. The 5 mm of anterior deltoid was reattached to the anterior acromion with a 2. Vicryl through bone the split closed with 2. Vicryl superiorly and 1. Portals closed with 3-0 subcutaneous Vicryl all incisions closed with glue. He was placed in an UltraSling and transferred to postop recovery in stable condition. No known complications. [facility] [place] - Charge Forward: Surgery Billing (Arthroscopic limited debridement of stump of long head of biceps tendon, mini open rotator cuff repair right shoulder)
[2025-02-27] MEDS: ceFAZolin 1 GM/NS 50 ML 1 GM/50 ML BAG IVPB (15:58)
== END 2025-02-27 17:02 | disposition home or self-care (01) ==
PROVIDERS: PCP Family Medicine; Visit Provider Orthopaedic Surgery
PROC: (CPT 29805; principal; 2025-02-27 11:30)
DX: M75.121 Complete rotator cuff tear or rupture of right shoulder, not specified as traumatic (principal); S46.111A Strain of muscle, fascia and tendon of long head of biceps, right arm, initial encounter; G89.18 Other acute postprocedural pain; I10 Essential (primary) hypertension; K21.9 Gastro-esophageal reflux disease without esophagitis; Z85.46 Personal history of malignant neoplasm of prostate; Z90.79 Acquired absence of other genital organ(s); Z87.891 Personal history of nicotine dependence
CPT/HCPCS: 29827; 29826; 64415; A4565; A9270; J0690; J1100; J1885; J2003; J2250; J2405; J2704; J3010; J3370; J7120